=== PATIENT | male | born 1945 | race Caucasian/White ===

== ENCOUNTER 2023-03-31 09:26 | Emergency (ER) | payer MEDICARE ==
[~2023-03-31] VITALS: Ht 177.8 cm; Wt 90.2 kg
[2023-03-31 09:26] VITALS: BP 136/80
== END 2023-03-31 11:41 | disposition home or self-care (01) ==
LOC: ER 09:26
DX: M25.552 Pain in left hip (principal); Z88.5 Allergy status to narcotic agent
CPT/HCPCS: 73502; 99284